=== PATIENT | male | born 1965 | race Caucasian/White ===

== ENCOUNTER 2017-04-19 17:23 | Emergency (ER) | payer OTHER ==
[~2017-04-19] VITALS: Ht 182.9 cm; Wt 114.3 kg
[~2017-04-19 17:23] MED LIST: ABILIFY PO; ALEVE220 M1; ALLEGRA-D1 TAB.SR1 PO; ALPRAZOLAM PO; AMOXICILLIN875 MG PO; APIDRA SOL100 UNIT/1; APIDRA SOL100 UNIT/1 SUBQ; ARIXTRA10 MG/0.8 SQ; ATIVAN0.5 M1; AUGMENTIN875 MG PO; AZITHROMYCIN500 MG PO; BACTROBAN15 GM TOP; CEFDINIR300 M1 PO; CEFTIN PO; CEPHALEXIN500 M1 PO; CIPRODEX OTIC7.5 ML; COLACE PO; CORTISPORI10 ML OTIC AD; COUMADIN PO; COUMADIN5 MG PO; COUMADIN6 MG PO; COUMADIN7.5 MG PO; CRESTOR PO; CRESTOR10 MG PO; DEMEROL PO; DIAZEPAM PO; DILAUDID2 MG PO; FENOFIBRATE160 MG PO; FISH OIL 1,001000 M1 PO; FISH OIL 10001000 MG PO; FISH OIL300 MG; FISH OIL500 M2 PO; FISH OIL500 MG PO; FLEXERIL PO; FLEXERIL10 M1 PO; FLEXERIL10 MG PO; GLIPIZIDE10 MG PO; GLUCOPHAGE500 MG PO; GLUCOTROL PO; HIBICLENS118 ML TOP; JANTOVEN5 MG PO; KLONOPIN0.5 M2 PO; LAMICTAL25 MG; LANTUS100 U/ML; LANTUS100 U/ML SUBQ; LANTUS100 UNITS/ SUBQ; LEVEMIR100 U/ML SQ; LIPITOR20 MG PO; LIPITOR40 MG PO; LISINOPRIL2.5 MG PO; LODINE XL PO; LOPID600 MG PO; LORACET PO; LORCET 10/650 T1 TAB PO; LOVENOX SUBQ; LOVENOX100 MG/ML INJ; LYRICA75 MG PO; MEDROL PO; METFORMIN HCL500 M1 PO; METFORMIN PO; MICRONASE1.25 MG PO; MULTI VITAMIN1 EACH; MULTI VITAMIN1 EACH PO; NEXIUM PO; NORCO 5/325 TAB1 TAB; OMEGA 3 FISH1 CAP.EC PO; OMNICEF300 M1 PO; OXYCODON HCL-1 UDTAB PO; PERCOCET 10-651 EACH PO; PERCOCET 10/6501 TA1 PO; PERCOCET10 PO; PREDNISONE PO; ROBAXIN 750750 M1; SEROQUEL PO; SKELAXIN PO; VALIUM10 MG PO; VICODIN 5/500 T1 TAB PO; WELLBUTRIN SR PO; XANAX2 MG PO; ZOCOR PO; ZOFRAN ODT4 MG/UDTAB PO; ZYRTEC PO
[2017-04-19] MEDS ORDERED: NAPROSYN-EC500 M1 (17:28)
== END 2017-04-19 18:40 | disposition home or self-care (01) ==
LOC: SED 17:23
DX: S61.512A Laceration without foreign body of left wrist, initial encounter (principal); E11.9 Type 2 diabetes mellitus without complications; Z79.01 Long term (current) use of anticoagulants; Z79.899 Other long term (current) drug therapy; W26.9XXA Contact with unspecified sharp object(s), initial encounter; Y92.009 Unspecified place in unspecified non-institutional (private) residence as the place of occurrence of the external cause
CPT/HCPCS: 12001; 99283